=== PATIENT | female | born 1945 | race Caucasian/White ===

== ENCOUNTER 2016-08-04 16:38 | Emergency (ER) | payer MEDICARE, OTHER ==
--- NOTE | ~2016-08-04 | CT71 ---
[facility] A Service of [facility] RADIOLOGY TEXT RESULTS PATIENT: KARINA GARRETT LOCATION: [facility] : 43 UNIT #: [id number] AGE: [address]: William Jacobs MD SEX: F ORDER DR: [id number] [facility] [address] [place], [place] [address] [id number] E MR#: [id number] Acc #: [id number] NAME: KARINA GARRETT. : 1945 SEX: F STUDY DATE/TIME: 08/04/2016 18:22 UNIT: [facility] ROOM: STUDY DESCRIPTION: CT Head Wo Contrast Attending Physician: William Jacobs M.D. Ordering Physician: William Jacobs M.D. Primary Care Physician: No Primary Care Physician MEDICAL IMAGING REPORT This report is preliminary unless electronic signature is present EXAM Head CT without contrast, 08/04/16. HISTORY Syncopal episode yesterday. Benign essential hypertension. TECHNIQUE This CT exam was performed with one or more of the following radiation dose reduction techniques: automatic exposure control, adjustment of mA and/or kV according to patient size, and iterative reconstruction. FINDINGS Axial images of the brain obtained without contrast show generalized atrophy. There are chronic ischemic changes seen around the ventricles. There is no evidence of mass effect, hemorrhage, or edema and no midline shift is seen. No acute changes are noted. IMPRESSION Normal except for atrophy and chronic ischemic changes. No acute changes are seen. Dictated by... Vishnu Verduzco M.D. THIS IS AN ELECTRONICALLY VERIFIED REPORT Vishnu Verduzco M.D. at 08/05/2016 2:14 PM PASCALE/diana TD: 08/04/2016 21:22 JOB #: [id number] MEDICAL IMAGING REPORT [facility] A Service of [facility] RADIOLOGY TEXT RESULTS PATIENT: KARINA GARRETT LOCATION: [facility] : 43 UNIT #: [id number] AGE: [address]: William Jacobs MD SEX: F ORDER DR: Page 1 of 1 COPY
--- NOTE | ~2016-08-04 | CR127 ---
[facility] A Service of [facility] & [facility] RADIOLOGY TEXT RESULTS PATIENT: KARINA GARRETT LOCATION: [facility] : 43 UNIT #: [id number] AGE: [address]: William Jacobs MD SEX: F ORDER DR: [id number] [facility] [address] [place], [place] [address] [id number] E MR#: [id number] Acc #: [id number] NAME: KARINA GARRETT : 1945 SEX: F STUDY DATE/TIME: 08/04/2016 17:27 UNIT: [facility] ROOM: STUDY DESCRIPTION: CR Foot Complete Min 3 View Rt Attending Physician: William Jacobs M.D. Ordering Physician: William Jacobs M.D. Primary Care Physician: No Primary Care Physician MEDICAL IMAGING REPORT This report is preliminary unless electronic signature is present EXAM Right foot, 08/04. INDICATION Foot pain and bruising after fainting last night and falling. FINDINGS Three views of the right foot were obtained. There is minimally displaced distal fibula fracture. 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 No acute fracture or malalignment is seen in the foot. IMPRESSION Distal fibula fracture. No acute foot fracture is seen. Dictated by... Vinnie Wilhelm Jr., M.D. THIS IS AN ELECTRONICALLY VERIFIED REPORT Vinnie Wilhelm Jr., M.D. at 08/04/2016 9:44 PM CLINT/diana TD: 08/04/2016 20:02 JOB #: [id number] MEDICAL IMAGING REPORT Page 1 of 1 COPY
--- NOTE | ~2016-08-04 | CR72 ---
[facility] A Service of [facility] & [facility] RADIOLOGY TEXT RESULTS PATIENT: KARINA GARRETT LOCATION: [facility] : 43 UNIT #: [id number] AGE: [address]: William Jacobs MD SEX: F ORDER DR: [id number] [facility] [address] [place], [place] [address] [id number] E MR#: [id number] Acc #: [id number] NAME: KARINA GARRETT : 1945 SEX: F STUDY DATE/TIME: 08/04/2016 17:24 UNIT: [facility] ROOM: STUDY DESCRIPTION: CR Chest Single View Portable Attending Physician: William Jacobs M.D. Ordering Physician: William Jacobs M.D. Primary Care Physician: No Primary Care Physician MEDICAL IMAGING REPORT This report is preliminary unless electronic signature is present EXAM Portable chest, 08/04. INDICATION Syncopal episode last night. The patient had subsequent fall. The patient now reports chest pain. History of smoking. FINDINGS AP portable chest is compared with 10/27/2014. Patient is status post CABG and coronary stenting. There is marked elevation of the left hemidiaphragm as seen before. Lungs are clear. No pneumothorax. IMPRESSION CABG changes with chronic marked elevation of the left hemidiaphragm. No acute findings in the chest. Dictated by... Vinnie Wilhelm Jr., M.D. THIS IS AN ELECTRONICALLY VERIFIED REPORT Vinnie Wilhelm Jr., M.D. at 08/04/2016 9:44 PM CLINT/diana TD: 08/04/2016 19:49 JOB #: [id number] MEDICAL IMAGING REPORT Page 1 of 1 COPY
--- NOTE | ~2016-08-04 | EKG ---
PATIENT: KARINA GARRETT UNIT #: [id number] Ventricular Rate: 109 BPM Atrial Rate: 109 BPM P-R Interval: 148 ms QRS Duration: 66 ms Q-T Interval: 356 ms QTC Calculation(Bezet): 479 ms P [place]: 73 degrees Calculated R [place]: 55 degrees Calculated T [place]: 122 degrees Diagnosis Line: Sinus tachycardia Diagnosis Line: Septal infarct , age undetermined Diagnosis Line: Abnormal ECG Diagnosis Line: When compared with ECG of 27-FEB-2012 06:21, Diagnosis Line: Septal infarct is now Present Diagnosis Line: Confirmed by ROHITH MADRID MD ([id number]) on Diagnosis Line: 08/07/2016 3:15:27 PM INTERPRETING MD: MERCY ANDREWS
--- NOTE | ~2016-08-04 | CR21 ---
[facility] A Service of [facility] & [facility] RADIOLOGY TEXT RESULTS PATIENT: KARINA GARRETT LOCATION: [facility] : 43 UNIT #: [id number] AGE: [address]: William Jacobs MD SEX: F ORDER DR: [id number] [facility] [address] [place], [place] [address] [id number] E MR#: [id number] Acc #: [id number] NAME: KARINA GARRETT : 1945 SEX: F STUDY DATE/TIME: 08/04/2016 17:26 UNIT: [facility] ROOM: STUDY DESCRIPTION: CR Ankle Min 3 Views Rt Attending Physician: William Jacobs M.D. Ordering Physician: William Jacobs M.D. Primary Care Physician: No Primary Care Physician MEDICAL IMAGING REPORT This report is preliminary unless electronic signature is present EXAM Right ankle, 08/04. INDICATION Ankle pain and bruising after fainting and falling last night. FINDINGS 3 views of the right ankle were obtained. There is an oblique, minimally displaced fracture of the distal fibula. The mortise remains intact. There is lateral soft tissue swelling. No other fractures. IMPRESSION Oblique minimally displaced fracture of the distal fibula with some soft tissue swelling laterally. Dictated by... Vinnie Wilhelm Jr., M.D. THIS IS AN ELECTRONICALLY VERIFIED REPORT Vinnie Wilhelm Jr., M.D. at 08/04/2016 9:44 PM CLINT/diana TD: 08/04/2016 19:57 JOB #: [id number] MEDICAL IMAGING REPORT Page 1 of 1 COPY
[~2016-08-04 16:38] MED LIST: ADVIL200 M1 PO; ASPIRIN81 M1 PO; BENADRYL25 M1 PO; BENTYL20 MG PO; DESYREL50 MG PO; FLEXERIL10 M1 PO; PLAVIX PO; PRAVACHOL80 MG PO; SYNTHROID25 MCG PO; SYNTHROID75 MCG PO; VITAMIN D400 UNI1 PO
[2016-08-04 18:20] LABS: BASOPHIL# 0.1 X10e3 (0-0.3); BASOPHIL% 0.6 % (0-2.5); EOSINOPHIL# 0.1 X10e3 (0-0.7); EOSINOPHIL% 0.5 % (0.0-7.0); HEMATOCRIT 39.5 % (35.0-45.0); HEMOGLOBIN 12.5 gm/dL (12.0-16.0); LYMPHOCYTE# 2.1 X10e3 (1.0-3.5); LYMPHOCYTE% 15.8 % (17.0-45.0); MEAN CELL VOLUME 87.7 FL (83-96); MEAN CORPUSCULAR HEMOGLOBIN 27.8 PG (28-34); MEAN CORPUSCULAR HGB CONC 31.7 g/dL (30-36); MEAN PLATELET VOLUME 10.1 FL (6.5-11.5); MONOCYTE% 7.4 % (3.0-12.0); NEUTROPHIL% 75.7 % (40-75); PLATELET COUNT 282 X10e3 (140-420); RED BLOOD COUNT 4.51 X10e (3.90-5.30); WHITE BLOOD COUNT 13.2 X10e3 (4.0-10.5)
[2016-08-04 18:24] LABS: POC - CKMB <1.0 ng/mL (0.0-7.9); POC - TROPONIN <0.05 ng/mL (<=0.05)
[2016-08-04 18:26] LABS: DIFF IND NO; PARTIAL THROMBOPLASTIN TIME 20.1 SECONDS (23.5-31.3)
[2016-08-04 18:45] LABS: ALBUMIN SERUM 4.4 g/dL (3.5-5.0); BILIRUBIN, DIRECT 0.2 mg/dL (0.0-0.2); BILIRUBIN,INDIRECT 0.6 mg/dL (0.0-0.9); BILIRUBIN,TOTAL 0.8 mg/dL (0.2-2.0); BUN/CREATININE RATIO 13.33; CALCIUM SERUM 10.8 mg/dL (8.4-10.2); CREATININE SERUM 0.9 mg/dL (0.6-1.4); GLOM FILT RATE Estimated 63.9 mL/min (>60); POTASSIUM 4.6 mmol/L (3.5-5.1); PROTEIN TOTAL SERUM 8.1 g/dL (6.0-8.3)
[2016-08-04 19:17] LABS: URINE SOURCE CLEAN CATCH
[2016-08-04 19:24] LABS: URINE APPEARANCE CLEAR; URINE BILIRUBIN NEG (NEG); URINE BLOOD TRACE (NEG); URINE COLOR YELLOW; URINE GLUCOSE NEG (NEG); URINE KETONE NEG (NEG); URINE LEUKOCYTE ESTERASE 3+ (NEG); URINE NITRATE NEG (NEG); URINE PH 5.5 (5-8); URINE PROTEIN NEG (NEG); URINE SPECIFIC GRAVITY 1.009 (1.003-1.035); URINE UROBILINOGEN 0.2 MG/DL (NEG)
[2016-08-04 19:26] LABS: CULTURE INDICATED? YES; URINE BACTERIA AUWI NEG (NEGATIVE); URINE SQUAMOUS EPITHELIAL CELL NONE SEEN /[HPF]; UWBCS1 AUWI 100-200 (0-5)
== END 2016-08-04 20:15 | disposition home or self-care (01) ==
LOC: CED 16:38
PROVIDERS: Emergency Medicine
DX: J44.9 Chronic obstructive pulmonary disease, unspecified (principal); N39.0 Urinary tract infection, site not specified; S82.831A Other fracture of upper and lower end of right fibula, initial encounter for closed fracture; X58.XXXA Exposure to other specified factors, initial encounter; Y92.9 Unspecified place or not applicable
CPT/HCPCS: 29515; 36415; 70450; 71010; 73610; 73630; 80048; 80076; 81003; 82553; 82947; 84484; 85025; 85610; 85730; 87086; 93005; 99284